=== PATIENT | female | born 1985 | race Caucasian/White ===

== ENCOUNTER 2019-04-07 03:13 | Emergency (ER) | payer SELFPAY | END 2019-04-07 03:57 | disposition left against medical advice (07) | LOC: FTE 03:13 | DX: Z53.21 Procedure and treatment not carried out due to patient leaving prior to being seen by health care provider (principal) ==

== ENCOUNTER 2019-04-20 18:15 | Emergency (ER) | payer OTHER | END 2019-04-20 18:50 | disposition home or self-care (01) | LOC: E/R 18:15 | DX: F41.9 Anxiety disorder, unspecified (principal) | CPT/HCPCS: 99283 ==

== ENCOUNTER 2019-05-04 00:09 | Emergency (ER) | payer SELFPAY, OTHER | END 2019-05-04 01:00 | disposition left against medical advice (07) | LOC: FTE 00:09 | DX: Z53.21 Procedure and treatment not carried out due to patient leaving prior to being seen by health care provider (principal) ==